=== PATIENT | female | born 2000 ===

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

== ENCOUNTER 2021-10-27 05:45 | Inpatient (IN) ==
[2021-10-27] MEDS ORDERED: CITRIC ACID/SODIUM CITRATE 30 ML UDCUP PO ONE (05:53)
[2021-10-27] MEDS ORDERED: ceFAZolin 2,000 MG/50 ML DUPLEX IV ONE (05:53)
[2021-10-27] MEDS ORDERED: FAMOTIDINE 20 MG/2 ML VIAL IV ONE (05:53)
[2021-10-27 06:25] LABS: Basophils % 0.1 % (0.0-0.8); Eosinophils % 0.4 % (0.00-10.9); Hematocrit 34.9 VOL% (35.7-47.0); Hemoglobin 10.9 GM/DL (12.0-16.0); Immature Granulocytes Absolute 0.09 #; Lymphocytes # 2.1 10*3/uL (1.4-4.0); Lymphocytes % 21.8 % (21.3-54.2); Mean Corpuscular HGB Conc 31.2 GM/DL (32-36); Mean Corpuscular Volume 79.1 FL (87-102); Mean Platelet Volume 9.8 FL (9.6-12.0); Monocytes % 5.7 % (1.7-12.7); NRBC # 0.02 10*3/uL; Platelet Count 317 T/CUMM (130-400); Red Blood Count 4.41 MC/CUMM (3.8-5.5); Red Cell Distribution Width 18.9 % (9.3-17.3); White Blood Count 9.4 T/CUMM (4-12)
[2021-10-27] MEDS: LACTATED RINGERS 1,000 ML IV SCH ×2 (06:29→07:22)
[2021-10-27] MEDS ORDERED: miSOPROStoL 200 MCG TABLET ONE (06:35)
[2021-10-27] MEDS ORDERED: SODIUM CHLORIDE 0.9% 0 ML IV ONE (06:35)
[2021-10-27] MEDS ORDERED: TRANEXAMIC ACID 1,000 MG/10 ML VIAL ONE ×2 (06:35→06:36)
[2021-10-27] MEDS ORDERED: OXYTOCIN/LR 20 UNIT/1,000 ML BAG IV ONE ×2 (06:35→09:23)
[2021-10-27] MEDS ORDERED: CARBOPROST TROMETHAMINE 250 MCG/ML AMP IM ONE (06:36)
[2021-10-27] MEDS ORDERED: OXYTOCIN 10 UNIT/ML VIAL IM PRN (06:36)
[2021-10-27] MEDS ORDERED: OXYTOCIN/LR 30 UNIT/1,000 ML BAG IV PRN (06:36)
[2021-10-27] MEDS ORDERED: METHYLERGONOVINE 0.2 MG/1 ML AMP ONE (06:36)
[2021-10-27 06:46] LABS: Alanine Aminotransferase 18 U/L (13-56); Albumin 2.7 G/DL (3.4-5.0); Alkaline Phosphatase 210 U/L (45-117); Aspartate Amino Transferase 19 U/L (0-37); Bilirubin,Direct < 0.100 MG/DL (0.0-0.20); Bilirubin,Total < 0.39 MG/DL (0.20-1.00); Blood Urea Nitrogen 14 MG/DL (7-18); Calcium 8.8 MG/DL (8.5-10.1); Carbon Dioxide 21 MMOL/L (21-32); Estimated Glom Filtration Rate 160 ML/MIN; Glucose 86 MG/DL (74-106); Potassium 3.8 MMOL/L (3.5-5.1); Sodium 136 MMOL/L (136-145); Total Protein 7.6 G/DL (6.4-8.2); Uric Acid 4.4 MG/DL (2.6-6.0)
[2021-10-27 06:51] LABS: INR 0.9; PT Patient Result 9.8 SECS (10.5-12.0); Partial Thromboplastin Time 30.2 SECS (23.8-32.1)
[2021-10-27] MEDS ORDERED: ONDANSETRON 4 MG/2 ML VIAL ONE (07:42)
[2021-10-27] MEDS ORDERED: BUPIVACAINE SPINAL 0.75% 2 ML AMP SPINAL ONE (07:42)
[2021-10-27] MEDS ORDERED: LACTATED RINGERS 1,000 ML IV ONE (08:26)
[2021-10-27] MEDS ORDERED: KETOROLAC 30 MG/1 ML VIAL ONE (08:42)
[2021-10-27 08:45] LABS: Mucus,Urine Occasional /LPF (Occasional); RBC,Urine <1 /HPF (0-4); Squamous Epithelial Cell,Urine Occasional /HPF (0-10)
[2021-10-27 08:46] LABS: Bilirubin,Urine Negative (Negative); Blood, Urine Negative (Negative); Glucose,Urine (UA) Negative (Negative); Ketones,Urine Negative (Negative); Nitrite,Urine Negative (Negative); Protein,Urine 100 MG/DL; Urine Appearance Clear (Clear); Urine Color Yellow (Yellow); Urine Specific Gravity > 1.030 (1.001-1.035); Urine Urobilinogen 0.2 EU/DL (<2.0)
[2021-10-27 08:50] LABS: Cord Arterial Blood HCO3 20.2 MMOL/L
[2021-10-27] MEDS ORDERED: PHENYLEPHRINE 1 MG/10 ML SYRINGE IV ONE (08:52)
[2021-10-27 08:53] LABS: Cord Venous Blood HCO3 21.2 MMOL/L; Cord Venous Blood PCO2 48.3 MMHG; Cord Venous Blood PO2 29.6
[2021-10-27] MEDS ORDERED: ACETAMINOPHEN 325 MG TABLET PO PRN (09:23)
[2021-10-27] MEDS ORDERED: SIMETHICONE CHEW 80 MG TABLET PO PRN (09:23)
[2021-10-27] MEDS ORDERED: MAGNESIUM HYDROXIDE SUSP 30 ML UDCUP PO PRN (09:23)
[2021-10-27] MEDS ORDERED: RHO(D) IMMUNE GLOBULIN 300 MCG SYRINGE IM ONE (09:23)
[2021-10-27] MEDS ORDERED: ONDANSETRON 4 MG/2 ML VIAL IV PRN (09:23)
[2021-10-27] MEDS ORDERED: LACTATED RINGERS 1,000 ML IV SCH (09:30)
[2021-10-27] MEDS ORDERED: ACETAMINOPHEN 500 MG TABLET PO SCH (12:00)
[2021-10-27] MEDS ORDERED: KETOROLAC 30 MG/1 ML VIAL IV SCH (15:00)
[2021-10-27 17:31] LABS: Basophils % 0.2 % (0.0-0.8); Eosinophils % 0.1 % (0.00-10.9); Hematocrit 30.4 VOL% (35.7-47.0); Hemoglobin 9.5 GM/DL (12.0-16.0); Immature Granulocytes % 0.6 %; Immature Granulocytes Absolute 0.07 #; Lymphocytes # 1.5 10*3/uL (1.4-4.0); Lymphocytes % 12.6 % (21.3-54.2); Mean Corpuscular HGB Conc 31.3 GM/DL (32-36); Mean Corpuscular Volume 79.8 FL (87-102); Mean Platelet Volume 10.1 FL (9.6-12.0); Monocytes % 4.3 % (1.7-12.7); Neutrophils % 82.2 % (38.7-73.9); Platelet Count 258 T/CUMM (130-400); Red Blood Count 3.81 MC/CUMM (3.8-5.5); Red Cell Distribution Width 18.3 % (9.3-17.3)
[2021-10-27] MEDS: KETOROLAC 30 MG/1 ML VIAL IV SCH (18:00)
[2021-10-27] MEDS: DOCUSATE SODIUM 100 MG CAPSULE PO SCH (20:11)
[2021-10-28] MEDS: KETOROLAC 30 MG/1 ML VIAL IV SCH ×2 (00:12→05:39)
[2021-10-28 05:08] LABS: Basophils % 0.1 % (0.0-0.8); Eosinophils % 0.5 % (0.00-10.9); Hematocrit 28.7 VOL% (35.7-47.0); Immature Granulocytes % 0.9 %; Immature Granulocytes Absolute 0.07 #; Lymphocytes # 1.7 10*3/uL (1.4-4.0); Lymphocytes % 20.6 % (21.3-54.2); Mean Corpuscular HGB Conc 31.4 GM/DL (32-36); Mean Corpuscular Volume 80.4 FL (87-102); Monocytes % 6.1 % (1.7-12.7); Neutrophils % 71.8 % (38.7-73.9); Platelet Count 265 T/CUMM (130-400); Red Blood Count 3.57 MC/CUMM (3.8-5.5); Red Cell Distribution Width 18.7 % (9.3-17.3); White Blood Count 8.2 T/CUMM (4-12)
[2021-10-28] MEDS: DOCUSATE SODIUM 100 MG CAPSULE PO SCH ×2 (09:00→21:42)
[2021-10-28] MEDS: MULTIVITAMIN (PRENATAL) TABLET PO SCH (09:00)
[2021-10-28] MEDS: IBUPROFEN 800 MG TABLET PO PRN ×2 (10:20→17:57)
[2021-10-29 07:38] VITALS: BP 97/57
[2021-10-29] MEDS: MULTIVITAMIN (PRENATAL) TABLET PO SCH (09:11)
[2021-10-29] MEDS: DOCUSATE SODIUM 100 MG CAPSULE PO SCH (09:11)
[2021-10-29] MEDS: IBUPROFEN 800 MG TABLET PO PRN (09:11)
== END 2021-10-29 11:25 | disposition home or self-care (01) | DRG 540 ==
LOC: N.LD 05:45 → N.OB 11:56
PROVIDERS: ADMIT Obstetrics & Gynecology; ATTEND Obstetrics & Gynecology
PROC: LDCSECT (ICD-10-PCS; 2021-10-27 08:30)